=== PATIENT | female | born 2000 | race Caucasian/White ===

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

== ENCOUNTER 2022-01-04 10:08 | Emergency (ER) | payer SELFPAY ==
[~2022-01-04 10:08] MED LIST changes: +PREDNISONE 20MG20 MG PO
[2022-01-04 11:32] LABS: BASOPHIL 0.3 % (0-2); EOSINOPHIL 0.3 % (0-5); HCT 38.6 % (37.0-47.0); HGB 12.2 g/dl (12.5-16.0); LYMPHOCYTE 8.8 % (15-48); MCH 25.1 pg (25.0-31.0); MCHC 31.6 g/dL (32.0-36.0); MCV 79.3 fL (78.0-100.0); MONOCYTE 7.4 % (0-12); MPV 10.2 fL (6.0-9.5); NEUTROPHIL 82.9 % (41-80); NRBC 0; PLT 378 K/uL (150-400); RBC 4.87 M/uL (4.20-5.40); RDW 14.8 % (11.5-14.0)
[2022-01-04 11:33] LABS: BILIRUBIN 1+ mg/dL (NEGATIVE); BLOOD NEGATIVE Ery/uL (NEGATIVE); CLARITY CLEAR (CLEAR); COLOR YELLOW (YELLOW); GLUCOSE (U) NORMAL (NORMAL); LEUKOCYTES 3+ Leu/uL (NEGATIVE); NITRITE NEGATIVE (NEGATIVE); PROTEIN TRACE (LOW) mg/dL (NEGATIVE); UROBILINOGEN 0.2 mg/dL (0.2-1.0); pH 7.5 (5.0-9.0)
[2022-01-04 11:35] LABS: AMPHETAMINES NEGATIVE (NEGATIVE); BARBITURATES NEGATIVE (NEGATIVE); ECSTASY (MDMA) NEGATIVE (NEGATIVE); MARIJUANA (THC) POSITIVE (NEGATIVE); METHADONE NEGATIVE (NEGATIVE); OPIATES NEGATIVE (NEGATIVE); OXYCODONE NEGATIVE (NEGATIVE)
[2022-01-04 11:38] LABS: BACTERIA 1+; SQUAMOUS EPITHELIAL CELLS >50
[2022-01-04 11:49] LABS: ALBUMIN 4.2 g/dL (3.4-5.0); BILIRUBIN - TOTAL 0.6 mg/dL (0.2-1.0); BUN/CREAT RATIO (CALC) 14.5 RATIO; CREATININE 0.62 mg/dL (0.51-0.95); GLOBULIN (CALCULATION) 3.1 g/dL; POTASSIUM 3.8 mmol/L (3.5-5.1); TOTAL PROTEIN 7.3 g/dL (6.4-8.2)
[2022-01-04] MEDS ORDERED: PRILOSEC20 MG PO (12:07)
[2022-01-04] MEDS ORDERED: BENTYL10 MG PO (12:07)
== END 2022-01-04 12:23 | disposition home or self-care (01) ==
LOC: FER 10:08
PROVIDERS: Emergency Medicine
DX: K29.50 Unspecified chronic gastritis without bleeding (principal)
CPT/HCPCS: 36415; 71046; 80053; 80305; 81001; 83690; 84484; 85025; 93005

== ENCOUNTER → 2022-05-03 12:00 | Emergency (ER) | payer SELFPAY ==
[~2022-05-03 12:00] MED LIST changes: +BENTYL10 MG PO; +PRILOSEC20 MG PO
== END | disposition left against medical advice (07) ==
LOC: CANPREER → FER 12:00
DX: Z53.21 Procedure and treatment not carried out due to patient leaving prior to being seen by health care provider (principal)

== ENCOUNTER 2022-06-11 23:48 | Emergency (ER) | payer SELFPAY ==
[2022-06-12 00:43] LABS: BILIRUBIN NEGATIVE (NEGATIVE); BLOOD NEGATIVE Ery/uL (NEGATIVE); CLARITY CLEAR (CLEAR); COLOR YELLOW (YELLOW); GLUCOSE (U) NORMAL (NORMAL); LEUKOCYTES NEGATIVE Leu/uL (NEGATIVE); NITRITE NEGATIVE (NEGATIVE); PROTEIN TRACE (LOW) mg/dL (NEGATIVE); SPECIFIC GRAVITY >=1.030 (1.001-1.030)
[2022-06-12 00:55] LABS: CORONAVIRUS 2019 SARS-COV-2 NEGATIVE (NEGATIVE); INFLUENZA A NAA NEGATIVE (NEGATIVE)
[2022-06-12 00:56] LABS: URINARY WBC 20-50
[2022-06-12 00:57] LABS: BACTERIA 2+; URINARY RBC RARE
[2022-06-12 01:31] LABS: BASOPHIL 0.2 % (0-2); EOSINOPHIL 0.9 % (0-5); HCT 36.1 % (37.0-47.0); HGB 11.3 g/dl (12.5-16.0); LYMPHOCYTE 20.9 % (15-48); MCH 25.6 pg (25.0-31.0); MCHC 31.3 g/dL (32.0-36.0); MCV 81.9 fL (78.0-100.0); MONOCYTE 9.4 % (0-12); MPV 10.3 fL (6.0-9.5); NEUTROPHIL 68.3 % (41-80); NRBC 0; PLT 386 K/uL (150-400); RBC 4.41 M/uL (4.20-5.40); RDW 14.8 % (11.5-14.0); WBC 12.3 K/uL (4.0-10.5)
[2022-06-12 01:32] LABS: ALBUMIN 3.5 g/dL (3.4-5.0); BILIRUBIN - TOTAL 0.3 mg/dL (0.2-1.0); BUN/CREAT RATIO (CALC) 14.1 RATIO; CREATININE 0.71 mg/dL (0.51-0.95); GLOBULIN (CALCULATION) 3.3 g/dL; POTASSIUM 3.7 mmol/L (3.5-5.1); TOTAL PROTEIN 6.8 g/dL (6.4-8.2)
[2022-06-12 01:37] LABS: INR 1.07 (0.9-1.2); PROTHROMBIN TIME 13.6 SECONDS (11.9-13.9); PTT 28.1 SECONDS (24.9-34.6)
[2022-06-12] MEDS ORDERED: AMOX TR-K CLV1 EAC4 PO (02:35)
== END 2022-06-12 03:15 | disposition home or self-care (01) ==
LOC: FER 23:48
PROVIDERS: Internal Medicine
DX: N39.0 Urinary tract infection, site not specified (principal); E27.8 Other specified disorders of adrenal gland; H66.93 Otitis media, unspecified, bilateral; R11.2 Nausea with vomiting, unspecified; Z20.822 Contact with and (suspected) exposure to COVID-19; Z28.310 Unvaccinated for COVID-19
CPT/HCPCS: 36415; 80053; 81001; 83690; 84145; 85025; 85610; 85730; 87088; 96372; J0696; J1100; J1885; J2405; J7120; U0002